=== PATIENT | male | born 1945 | race Caucasian/White ===

== ENCOUNTER → 2017-01-26 | Outpatient (CLI) | payer MEDICARE ==
--- NOTE | 2017-01-26 12:49 | RAD ---
CT of the chest without contrast, 01/26/2017: History: Follow-up lung nodule Noncontrast scans were obtained and compared to a study from 08/28/2016. There is an 8 mm noncalcified nodule in the medial aspect of the right lower lobe as best seen on image 161 of series #3. It measured 7 mm on the 08/28/2016 study. This slight difference could be on a technical basis, as we obtain thinner axial reconstructions on today's exam. A tiny 2 mm subpleural nodule is seen in the right apex on image 34 of series #3. In retrospect this was present on the previous study and is unchanged. There are a few scattered linear opacities in both lungs compatible with scars. No significant pulmonary consolidation is seen. There is no evidence of pleural fluid. The central bronchi are unremarkable. There is moderate calcific plaquing of the thoracic aorta without evidence of aneurysm. Moderate scattered coronary calcifications are present. No mediastinal adenopathy is seen. A 3 cm cyst is noted in the left kidney. IMPRESSION: 1. Equivocal slight interval increase in size of the right lower lobe pulmonary nodule as described above. A neoplastic etiology remains a possibility and further short interval CT follow-up is suggested. It is considered to be of borderline size for accurate PET/CT evaluation. 2. Moderate calcific plaquing of the aorta and coronary arteries. PQRS Compliance Statement: One or more of the following individualized dose reduction techniques were utilized for this examination: 1. Automated exposure control 2. Adjustment of the mA and/or kV according to patient size 3. Use of iterative reconstruction technique
== END | disposition home or self-care (01) ==
LOC: CT 10:38
PROVIDERS: ATTEND Internal Medicine Critical Care Medicine
DX: R91.1 Solitary pulmonary nodule (principal); I70.0 Atherosclerosis of aorta
CPT/HCPCS: 71250

== ENCOUNTER → 2017-06-12 | Outpatient (CLI) | payer MEDICARE ==
--- NOTE | 2017-06-12 14:35 | RAD ---
CT chest without contrast 06/12/2017 at 0815 hours Indication: Follow-up lung nodule. Comparison: CT chest 01/26/2017, 08/28/2016. Technique: Multiple axial CT images of the chest were obtained without intravenous contrast. Coronal and sagittal reformats are provided. Findings: The thyroid gland is normal in appearance. Heart size is within normal limits. No pericardial effusion. Three-vessel coronary vascular calcification is present. There are no enlarged axillary, hilar or mediastinal lymph nodes. Redemonstration of a 6-7 mm pulmonary nodule in the medial right lower lobe (series 2, image 36). This corresponds with previously described solid noncalcified pulmonary nodule in the prior examination from 01/26/2017. This nodule measures similar dating back to 08/28/2016. Differences in comparing the exam from 08/28/2016 to 01/26/2017 may be technical. No additional suspicious pulmonary nodules are identified. There are no pleural effusions. No coronary vascular congestion or pneumothorax. Simple appearing renal cyst is noted in the left kidney measuring 2.4 cm. Otherwise, the visualized upper abdomen is grossly normal. No suspicious osseous lesions are identified. Impression: Solid noncalcified pulmonary nodule in the right lower lobe measures 6 to 7 mm, unchanged dating back to 08/28/2016. Recommend follow-up chest CT in 6-12 months to ensure stability. PQRS Compliance Statement: One or more of the following individualized dose reduction techniques were utilized for this examination: 1. Automated exposure control 2. Adjustment of the mA and/or kV according to patient size 3. Use of iterative reconstruction technique
== END | disposition home or self-care (01) ==
LOC: CT 08:33
PROVIDERS: ATTEND Internal Medicine Critical Care Medicine
DX: R91.1 Solitary pulmonary nodule (principal)
CPT/HCPCS: 71250

== ENCOUNTER → 2018-03-05 | Outpatient (CLI) | payer MEDICARE | END | disposition home or self-care (01) | LOC: CT 07:45 | DX: I25.10 Atherosclerotic heart disease of native coronary artery without angina pectoris (principal); N28.1 Cyst of kidney, acquired; R91.1 Solitary pulmonary nodule | CPT/HCPCS: 71250 ==

== ENCOUNTER → 2018-03-25 | Outpatient (CLI) | payer MEDICARE ==
[2018-03-25 09:45] LABS: PROSTATE SPECIFIC ANTIGEN 6.69 ng/mL (0.00-4.00)
== END | disposition home or self-care (01) ==
LOC: LAB 07:44
DX: Z12.5 Encounter for screening for malignant neoplasm of prostate (principal); I10 Essential (primary) hypertension
CPT/HCPCS: 36415; G0103

== ENCOUNTER → 2018-06-01 | Outpatient (CLI) | payer MEDICARE | END | disposition home or self-care (01) | LOC: KCIC 09:34 | DX: M19.041 Primary osteoarthritis, right hand (principal); M79.89 Other specified soft tissue disorders; I10 Essential (primary) hypertension | CPT/HCPCS: 73140 ==

== ENCOUNTER → 2018-07-21 | Outpatient (CLI) | payer MEDICARE ==
--- NOTE | 2018-07-21 15:31 | CARD ---
MR#: [id number] Date of Study: 07/21/2018 Ordering Physician: VIRY AMBROSIO, Referring Physician: Diane GRACE: GIOVANNI Hodge APPROVED REPORT EXAM: Two-dimensional and M-mode echocardiogram with Doppler and color Doppler. Other Information HR: 43bpm Rhythm : Bradycardia INDICATION Atrial Fibrillation 2D DIMENSIONS RVDd3.6 (2.9-3.5cm)Left Atrium(2D)4.1 (1.6-4.0cm) IVSd1.3 (0.7-1.1cm)Aortic Root(2D)3.7 (2.0-3.7cm) LVDd5.5 (3.9-5.9cm)LVOT Diameter2.1 (1.8-2.4cm) PWd1.2 (0.7-1.1cm)IVSs1.8 (0.8-1.2cm) LVDs3.4 (2.5-4.0cm)FS (%) 38.4 % PWs1.9 (0.8-1.2cm)SV101.2 ml LVEF(%)68.1 (>50%) Aortic Valve AoV Peak Alexsander.143.0cm/sAoV VTI35.7cm AO Peak GR.8.2mmHgLVOT Peak Alexsander.72.9cm/s LVOT VTI 21.62cmAO Mean GR.4mmHg MARIAM (VMAX)1.79df6SYD (VTI)2.06cm2 Mitral Valve MV E Sdenmnxe58.4cm/sMV DECEL [id number] MV A Bvnmfrmj19.4cm/sMV HWO81rt E/A Ratio1.0MVA (PHT)3.39cm2 TDI E/Lateral E'11.8E/Medial E'12.7 Pulmonary Valve PV Peak Bvvimgpb052.3cm/sPV Peak Grad.5mmHg Tricuspid Valve TR P. Epdfgrar702lb/sTR Peak Gr.23mmHg Pulmonary Vein S1 Fknbcect73.8cm/sD2 Btvuirik37.0cm/s LEFT VENTRICLE The left ventricle is normal size. There is mild concentric left ventricular hypertrophy. The left ve ntricular systolic function is normal. The Ejection Fraction is 55-60%. There is normal LV segmental wall motion. The left ventricular diastolic function and filling is normal for age. RIGHT VENTRICLE The right ventricle is normal size. The right ventricular systolic function is normal. ATRIA The left atrium is mildly dilated. The right atrium size is normal. The interatrial septum is intact with no evidence for an atrial septal defect or patent foramen ovale as noted on 2-D or Doppler imagi ng. AORTIC VALVE The aortic valve is calcified but opens well. Doppler and Color Flow revealed no significant aortic r egurgitation. There is no significant aortic valvular stenosis. There is no aortic valvular vegetatio n. MITRAL VALVE The mitral valve is thickened but opens well. There is no evidence of mitral valve prolapse. There is no mitral valve stenosis. Doppler and Color-flow revealed trace mitral regurgitation. TRICUSPID VALVE The tricuspid valve leaflets are thickened , but open well. Doppler and Color Flow revealed trace to mild tricuspid regurgitation. The pulmonary artery systolic pressure is estimated at 28 mmHg. There i s no tricuspid valve prolapse or vegetation. There is no tricuspid valve stenosis. PULMONIC VALVE The pulmonic valve is not well visualized. Doppler and Color Flow revealed trace pulmonic valvular re gurgitation. There is no pulmonic valvular stenosis. GREAT VESSELS The aortic root is borderline normal size. The IVC was not visualized. PERICARDIAL EFFUSION There is no pleural effusion. There is no evidence of significant pericardial effusion. Critical Notification Critical Value: No <Conclusion> The left ventricular systolic function is normal. The Ejection Fraction is 55-60%. There is normal LV segmental wall motion. Trace mitral regurgitation. Trace to mild tricuspid regurgitation. The pulmonary artery systolic pressure is estimated at 28 mmHg. There is no evidence of significant pericardial effusion. Signed by : Viry Ambrosio, Electronically Approved : 07/21/2018 15:30:23
== END | disposition home or self-care (01) ==
LOC: ECHO 08:05
PROVIDERS: ATTEND Internal Medicine Cardiovascular Disease
DX: I36.1 Nonrheumatic tricuspid (valve) insufficiency (principal); I48.91 Unspecified atrial fibrillation; I10 Essential (primary) hypertension; I25.10 Atherosclerotic heart disease of native coronary artery without angina pectoris
CPT/HCPCS: 93306

== ENCOUNTER → 2018-10-01 | Outpatient (CLI) | payer MEDICARE ==
[2018-10-04 11:17] LABS: FREE PSA/PSA RATIO 15.5 % (.); PSA FREE 0.93 ng/mL
== END | disposition home or self-care (01) ==
LOC: LAB 11:33
PROVIDERS: ATTEND Urology
DX: R97.20 Elevated prostate specific antigen [PSA] (principal)
CPT/HCPCS: 36415; 84153; 84154

== ENCOUNTER → 2019-08-11 | Outpatient (CLI) | payer MEDICARE ==
--- NOTE | 2019-08-11 10:53 | CARD ---
MR#: [id number] Date of Study: 08/11/2019 Ordering Physician: VIRY ABDULLAHI, Referring Physician: VIRY ABDULLAHI Tech: Daly Francis RDCS APPROVED REPORT EXAM: Two-dimensional and M-mode echocardiogram with Doppler and color Doppler. Other Information Quality : Fair INDICATION Atrial Fibrillation 2D DIMENSIONS RVDd3.2 (2.9-3.5cm)Left Atrium(2D)4.3 (1.6-4.0cm) IVSd1.6 (0.7-1.1cm)Aortic Root(2D)3.5 (2.0-3.7cm) LVDd5.8 (3.9-5.9cm)LVOT Diameter2.3 (1.8-2.4cm) PWd1.1 (0.7-1.1cm)LVDs4.4 (2.5-4.0cm) FS (%) 23.2 %SV75.2 ml LVEF(%)55.0 (>50%) Aortic Valve AoV Peak Alexsander.176.4cm/sAoV VTI35.8cm AO Peak GR.12.4mmHgLVOT Peak Alexsander.165.8cm/s AO Mean GR.6mmHgAVA (VMAX)3.90cm2 MARIAM (VTI)3.60cm2 Mitral Valve MV E Xvwlcwpj22.9cm/sMV DECEL GGDC537ak MV A Svmvrqxg62.6cm/sE/A Ratio0.9 Tricuspid Valve TR P. Nvvlrrwi101ty/sRAP ZLFTCTLZ5caCl TR Peak Gr.48oxTfJYLY81qyBb Pulmonary Vein S1 Spmmaqbx43.9cm/sD2 Vkfyyzlt28.9cm/s LEFT VENTRICLE The left ventricle is normal size. There is moderate asymmetric septal hypertrophy. The left ventricu lar systolic function is normal. The Ejection Fraction is 55-60%. There is normal LV segmental wall m otion. Transmitral Doppler flow pattern is Grade I-abnormal relaxation pattern. RIGHT VENTRICLE The right ventricle is normal size. The right ventricular systolic function is normal. ATRIA The left atrium is mildly dilated. The right atrium size is normal. The interatrial septum is intact with no evidence for an atrial septal defect or patent foramen ovale as noted on 2-D or Doppler imagi ng. AORTIC VALVE The aortic valve is calcified but opens well. Doppler and Color Flow revealed no significant aortic r egurgitation. There is no significant aortic valvular stenosis. MITRAL VALVE The mitral valve is calcified but opens well. Mitral annular calcification is mild. There is no evid ence of mitral valve prolapse. There is no mitral valve stenosis. Doppler and Color-flow revealed tra ce mitral regurgitation. TRICUSPID VALVE The tricuspid valve is normal in structure and function. Doppler and Color Flow revealed trace tricus pid regurgitation. There is mild pulmonary hypertension. The PA pressure was estimated at 34 mmHg. Th ere is no tricuspid valve stenosis. PULMONIC VALVE The pulmonic valve is not well visualized. Doppler and Color Flow revealed trace to mild pulmonic sofie vular regurgitation. There is no pulmonic valvular stenosis. GREAT VESSELS The aortic root is normal in size. The ascending aorta is mildly dilated at 3.6 cm. The IVC is dilate d and collapses >50% with inspiration. PERICARDIAL EFFUSION There is no evidence of significant pericardial effusion. Critical Notification Critical Value: No <Conclusion> The left ventricular systolic function is normal. The Ejection Fraction is 55-60%. There is normal LV segmental wall motion. Transmitral Doppler flow pattern is Grade I-abnormal relaxation pattern. Trace mitral regurgitation. Trace tricuspid regurgitation. The PA pressure was estimated at 34 mmHg. There is no evidence of significant pericardial effusion. Signed by : Viry Abdullahi, Electronically Approved : 08/11/2019 10:52:46
== END | disposition home or self-care (01) ==
LOC: ECHO 08:46
PROVIDERS: ATTEND Internal Medicine Cardiovascular Disease
DX: I08.8 Other rheumatic multiple valve diseases (principal); I27.20 Pulmonary hypertension, unspecified; I11.9 Hypertensive heart disease without heart failure; I48.91 Unspecified atrial fibrillation
CPT/HCPCS: 93306

== ENCOUNTER → 2020-09-12 | Outpatient (CLI) | payer MEDICARE ==
--- NOTE | 2020-09-12 12:24 | CARD ---
MR#: [id number] Date of Study: 09/12/2020 Ordering Physician: VIRY ABDULLAHI, Referring Physician: VIRY ABDULLAHI Tech: Daly Francis RDCS APPROVED REPORT EXAM: Two-dimensional and M-mode echocardiogram with Doppler and color Doppler. Other Information Quality : Good Rhythm : Bradycardia INDICATION Paroxysmal Atrial Fibrillation 2D DIMENSIONS RVDd3.2 (2.9-3.5cm)Left Atrium(2D)4.2 (1.6-4.0cm) IVSd1.4 (0.7-1.1cm)Aortic Root(2D)3.0 (2.0-3.7cm) LVDd5.5 (3.9-5.9cm)LVOT Diameter2.4 (1.8-2.4cm) PWd1.1 (0.7-1.1cm)LVDs3.7 (2.5-4.0cm) FS (%) 32.5 %SV87.9 ml Aortic Valve AoV Peak Alexsander.160.3cm/sAoV VTI43.2cm AO Peak GR.10.3mmHgLVOT Peak Alexsander.143.8cm/s AO Mean GR.6mmHgAVA (VMAX)3.93cm2 MARIAM (VTI)3.40cm2 Mitral Valve MV E Vvehbaaw374.8cm/sMV DECEL DFXZ412mo MV A Tzgognea400.5cm/sE/A Ratio0.9 Tricuspid Valve TR P. Enejbrch211xm/sRAP HXTXVMXU2qeEr TR Peak Gr.46wkTlEBAX89ipJn Pulmonary Vein S1 Nntvgihb24.1cm/sD2 Omxufozz41.2cm/s LEFT VENTRICLE The left ventricle is normal size. There is mild asymmetric septal hypertrophy. The left ventricular systolic function is normal and the ejection fraction is within normal range. The Ejection Fraction i s 50-55%. There is normal LV segmental wall motion. Transmitral Doppler flow pattern is Grade I-abnor mal relaxation pattern. RIGHT VENTRICLE The right ventricle is normal size. The right ventricular systolic function is normal. ATRIA The left atrium is mildly dilated. The right atrium size is normal. The interatrial septum is intact with no evidence for an atrial septal defect or patent foramen ovale as noted on 2-D or Doppler imagi ng. AORTIC VALVE The aortic valve is calcified but opens well. Doppler and Color Flow revealed trace aortic regurgitat ion. There is no significant aortic valvular stenosis. MITRAL VALVE The mitral valve is calcified but opens well. There is no evidence of mitral valve prolapse. There is no mitral valve stenosis. Doppler and Color-flow revealed trace mitral regurgitation. TRICUSPID VALVE The tricuspid valve is normal in structure and function. Doppler and Color Flow revealed trace tricus pid regurgitation. The PA pressure was estimated at 31 mmHg. There is no tricuspid valve stenosis. PULMONIC VALVE The pulmonic valve is not well visualized. Doppler and Color Flow revealed trace pulmonic valvular re gurgitation. There is no pulmonic valvular stenosis. GREAT VESSELS The aortic root is normal in size. The ascending aorta is mildly dilated at 3.6 cm. The IVC is normal in size and collapses >50% with inspiration. PERICARDIAL EFFUSION There is no evidence of significant pericardial effusion. Critical Notification Critical Value: No <Conclusion> The left ventricle is normal size. The left ventricular systolic function is normal and the ejection fraction is within normal range. The Ejection Fraction is 50-55%. Doppler and Color Flow revealed trace aortic regurgitation. There is no significant aortic valvular stenosis. Doppler and Color-flow revealed trace mitral regurgitation. Doppler and Color Flow revealed trace tricuspid regurgitation. The PA pressure was estimated at 31 mmHg. The ascending aorta is mildly dilated at 3.6 cm. Signed by : Neal Coffman MD Electronically Approved : 09/12/2020 12:24:21
== END ==
LOC: ECHO 07:18
PROVIDERS: ATTEND Internal Medicine Cardiovascular Disease
DX: I08.0 Rheumatic disorders of both mitral and aortic valves (principal); I48.0 Paroxysmal atrial fibrillation
CPT/HCPCS: 93306